=== PATIENT | male | born 1995 | race Caucasian/White ===

== ENCOUNTER 2018-07-26 13:46 | Emergency (ER) | payer SELFPAY ==
[~2018-07-26 13:46] MED LIST: ERYT-99 PO
== END 2018-07-26 14:05 | disposition left against medical advice (07) ==
LOC: EDUNIT# 13:46 → ER 13:47
DX: S61.012A Laceration without foreign body of left thumb without damage to nail, initial encounter (principal); X58.XXXA Exposure to other specified factors, initial encounter